=== PATIENT | female | born 1955 | race Caucasian/White ===

== ENCOUNTER 2023-05-06 08:56 | Emergency (ER) | payer MEDICARE, SELFPAY ==
[2023-05-06 08:59] VITALS: BP 171/106
--- NOTE | 2023-05-06 09:47 | ED.GENMED ---
History of Present Illness
<Opal Parnell PA-C - Last Filed: 05/06/23 11:15>
General
Chief Complaint: Fall
Source: patient
Exam Limitations: none
Time Seen by Provider: 05/06/23 09:32
Nursing documentation reviewed up to this point in time: agreed with
Travel History
Have you had any contact with someone who has COVID-19?: No
Do you have any symptoms of coronavirus? Fever > 100 degrees, chills, cough, shortness of breath, sore throat, loss of taste or smell, muscle aches, or headache?: No
History of Present Illness
History of Present Illness:
Patient is a 67-year-old female presenting for evaluation of right shoulder pain after falling in shower. Patient states that she slipped in the shower this morning landing on her right arm with some impact to her right cheek. Patient denies any
LOC. She denies any retrograde amnesia. Patient having some pain in right upper arm. She denies any numbness or tingling in right upper extremity. She denies any headache, visual changes, neck pain, or back pain.
Patient is not on any blood thinners.
Past History
<Opal Parnell PA-C - Last Filed: 05/06/23 11:15>
Past History
ED Past Medical History: GERD
ED Past Surgical History: None
Social History
Tobacco: Non-smoker
Alcohol: None
Drug: None
Personal:
Living: with family
Employment: Employed
Phy Exam
<Opal Parnell PA-C - Last Filed: 05/06/23 11:15>
Physical Exam
Physical Exam:
General: Well appearing and non-toxic
Vitals: Hypertensive, otherwise vital signs stable; afebrile
HEENT: Normocephalic; small bruise to right lateral cheek, pupils equal round reactive to light bilaterally, extraocular muscle intact, no tenderness surrounding orbits; no tenderness at TMJ or mandible, protecting airway
Neck: appears supple, no cervical spine or midline spinal tenderness
CV: Regular rate and rhythm, heart sounds normal, no evidence of cyanosis
Resp: No evidence of respiratory distress, lungs clear bilaterally
Abd: Non-distended
Extremities: Mild tenderness to palpation of right upper arm without obvious deformity; right upper arm neurovascularly intact, right radial pulse palpable; full range of motion of right wrist and right elbow, limited abduction of right shoulder due
to pain
Neuro: alert and oriented x [address]; speech normal; strength 5 out of 5 in lower extremities and left upper extremity, some weakness noted in right upper extremity due to pain; sensation fully intact
Psych: Normal affect
Skin: Intact, no rashes
Course
<Opal Parnell PA-C - Last Filed: 05/06/23 11:15>
Orders/Labs/Results
Orders:
Orders
05/06/23 09:31
Shoulder, Right, Trauma [CR Shoulder, Trauma - Right] Urgent
Comment:
Reason For Exam: pain, trauma
05/06/23 09:47
Acetaminophen [Tylenol] 650 mg PO NOW STA
05/06/23 09:58
CT Head W/o Iv Contrast Urgent
Comment:
Reason For Exam: fall, head strike
05/06/23 10:18
Sling Right-Treatment ONCE
Vital Signs
Initial and Last Documented VS:
Initial Vital Signs
Temp Pulse Resp BP Pulse Ox
36.7 C 58 18 171/106 100
05/06/23 08:59 05/06/23 08:59 05/06/23 08:59 05/06/23 08:59 05/06/23 08:59
Last Documented Vital Signs
Temp Pulse Resp BP Pulse Ox
36.7 C 58 18 171/106 100
05/06/23 08:59 05/06/23 08:59 05/06/23 08:59 05/06/23 08:59 05/06/23 08:59
<Burke Lux MD - Last Filed: 05/06/23 14:46>
Orders/Labs/Results
Orders:
Orders
05/06/23 09:31
Shoulder, Right, Trauma [CR Shoulder, Trauma - Right] Urgent
Comment:
Reason For Exam: pain, trauma
05/06/23 09:47
Acetaminophen [Tylenol] 650 mg PO NOW STA
05/06/23 09:58
CT Head W/o Iv Contrast Urgent
Comment:
Reason For Exam: fall, head strike
05/06/23 10:18
Sling Right-Treatment ONCE
Vital Signs
Initial and Last Documented VS:
Initial Vital Signs
Temp Pulse Resp BP Pulse Ox
36.7 C 58 18 171/106 100
05/06/23 08:59 05/06/23 08:59 05/06/23 08:59 05/06/23 08:59 05/06/23 08:59
Last Documented Vital Signs
Temp Pulse Resp BP Pulse Ox
36.7 C 58 18 171/106 100
05/06/23 08:59 05/06/23 08:59 05/06/23 08:59 05/06/23 08:59 05/06/23 08:59
<Opal Parnell PA-C - Last Filed: 05/06/23 11:15>
MDM/Problems Addressed
Differential Diagnosis Includes:
Contusion, fracture, dislocation, ligamentous injury
MDM/Problems Addressed:
Patient is 67-year-old female presenting from home for evaluation of right arm injury after sustaining a fall while in the shower earlier today. She slipped and fell landing on her right arm with some impact to her right cheek. She denies any
headache, back pain, visual changes. She is hypertensive, otherwise vital signs stable. She has some mild bruise on right lateral cheek but no visible orbital trauma. No focal neurologic deficits on exam. She has mild tenderness palpation of
right upper arm with limited abduction of due to pain. Right upper extremity neurovascular intact. Given trauma will check x-ray of right shoulder and head CT. Tylenol for pain. Will reassess
Xray shows a subtle nondisplaced fracture of right greater tuberosity. Will place in shoulder sling and have patient f/u with orthopedics
Head CT negative for any acute intracranial abnormality.
Patient stable for discharge with Ortho follow-up, Tylenol for pain. Return precautions discussed. She is comfortable this plan. All questions answered.
Chronic conditions affecting care:
N/A
Acute Exacerbation and/or Progression of Chronic Illness:
N/A
<Opal Parnell PA-C - Last Filed: 05/06/23 11:15>
*Radiology
Radiology exam reviewed: preliminary read by ED provider and radiology read reviewed
*Pulse Oximetry
Patient hypoxic: no
*Sewing Demonstrator Interpretation
Rate: Sewing Demonstrator- N/A
*Critical Care Note
Total Time (30-74mins, 75-104mins- exclusive of procedures): Not Applicable
ED Attending Note
<Opal Pranell PA-C - Last Filed: 05/06/23 11:15>
-
Portions of this chart may have been created with voice recognition software.� Occasional wrong word or��sound alike� substitutions may have occurred due to the inherent limitations of voice recognition software.
<Burke Lux MD - Last Filed: 05/06/23 14:46>
ED Attending Note
Patient seen and examined by attending physician: Yes
ED Attending Note:
HPI: 67-year-old female with history of GERD presents for evaluation after a fall with a shoulder injury. She says that she slipped in the shower and fell and hit her right shoulder. She did strike her right cheek on the ground. No loss of
consciousness. Complains of shoulder pain but denies any other complaints. Denies pain in the head or neck. Denies pain in the back. No chest pain, abdominal pain. No pain in the rest of her extremities. Has been ambulatory since the fall.
Not on blood thinners.
ROS: Positive for shoulder pain; negative for headache, neck pain, back pain, chest pain, abdominal pain, numbness or weakness in extremities
Physical exam:
General: Well appearing and non-toxic
HEENT: Head is normocephalic, atraumatic, protecting airway
Neck: No tenderness in the thoracic spine
CV: No evidence of cyanosis
Resp: No accessory muscle use
Abd: Non-distended
Back: No tenderness in the thoracic or lumbar spine
Extremities: On exam of the right shoulder patient has tenderness along the humeral head but no swelling or deformity of the right shoulder; she has no tenderness of the right elbow or wrist, good strong right radial pulse, motor and sensory
function intact radial, median, ulnar nerve distribution right upper extremity; rest of extremities atraumatic
Neuro: Alert
Psych: Normal affect
Skin: Intact
Differential diagnosis: Shoulder contusion, shoulder dislocation, shoulder fracture
Medical decision m[age]-year-old female presents after mechanical slip and fall in the shower with right shoulder injury also had some minor trauma to the head (struck her right cheek on the ground). Given her age sent for CT head which was
negative. Sent for an x-ray of the shoulder which showed a minor humeral head fracture. Placed in a sling. Will refer to orthopedics. Spoke to her about return precautions all questions answered.
Chronic conditions affecting care: N/A
Acute exacerbation or progression of chronic illness: Acutely hypertensive likely related to pain�no indication for emergent antihypertensive therapy as she has no signs or symptoms of hypertensive emergency
History source: Patient, spouse
Data reviewed: N/A
Medications/testing considered: N/A
Social determinants of health: N/A
Discussion with other providers: N/A
Discharge Plan
Departure
Patient Disposition: Home (Routine Discharge)
Date of Disposition: 05/06/23
Time of Disposition: 11:10
Patient with high blood pressure during this ER visit?: Yes
Condition: Good
Covid-19: Not Applicable
Discharge Problem:
Fracture of greater tuberosity of right humerus
Instructions: How to Use a Shoulder Sling ED, Upper Arm Fracture ED, BLOOD PRESSURE
Prescriptions:
No Action
ascorbic acid (vitamin C) [Vitamin C] 1,000 MG tablet
1,000 mg PO DAILY
omeprazole [Prilosec] 10 MG capsule,delayed release(DR/EC)
20 mg PO DAILY
calcium carbonate 500 MG tablet
500 mg PO DAILY
docosahexaenoic acid-epa 1 CAP capsule
1 cap PO DAILY
cholecalciferol (vitamin D3) 1,000 UNITS tablet
1,000 units PO DAILY
Lactobacillus acidophilus [Probiotic] 1 EACH capsule
1 ea PO DAILY
hydrochlorothiazide 25 MG tablet
25 mg PO DAILY Qty: 30 0RF
Referrals:
Carmelo Crocker MD [Family Provider] -
Alexi Mariscal MD [Active] - Next open appointment
Activity Restrictions/Additional Instructions:
- Return to the emergency department with any severe pain, numbness/tingling right arm, severe headache, persistent nausea, intractable vomiting, visual changes, confusion, worsening current symptoms, or any other concerns
-As discussed�you should follow-up with orthopedics within the next few days for further evaluation/management of fracture of right upper arm.
-You should keep arm in sling until cleared by orthopedics. You can take Tylenol as needed for discomfort
Interventions
Interventions:
*Risk Screen - Suicide Last Done: 05/06/23 11:25
*General Assessment Last Done: 05/06/23 11:25
*Neglect/Abuse Screening Last Done: 05/06/23 11:25
ED- Fall Risk Assessment Last Done: 05/06/23 11:25
*ED COVID-19 Vaccine History Last Done: 05/06/23 09:04
*Nursing Disposition Last Done: 05/06/23 11:25
ED-Musculoskeletal Assessment Last Done: 05/06/23 09:31
ED- Neurological Assessment Last Done: 05/06/23 10:54
ED-Skin Assessment Last Done: 05/06/23 10:54
Discharge Date and Time
Discharge Date/Time: 05/06/23 11:25
[2023-05-06] MEDS: TYLENOL 650 MG PO (10:02)
== END 2023-05-06 11:25 | disposition home or self-care (01) ==
LOC: EMR 08:56
PROVIDERS: EMERGENCY PHYSICIAN Emergency Medicine; FAMILY PHYSICIAN Family Medicine
DX: S42.251A Displaced fracture of greater tuberosity of right humerus, initial encounter for closed fracture (principal); S00.83XA Contusion of other part of head, initial encounter; W18.2XXA Fall in (into) shower or empty bathtub, initial encounter; Y93.E1 Activity, personal bathing and showering; R03.0 Elevated blood-pressure reading, without diagnosis of hypertension
CPT/HCPCS: 99284; 70450; 73030

== ENCOUNTER → 2023-08-11 14:23 | Outpatient (REF) | payer MEDICARE, SELFPAY | LOC: WDC 14:23 | PROVIDERS: ATTENDING PHYSICIAN Family Medicine | DX: Z78.0 Asymptomatic menopausal state (principal); Z12.31 Encounter for screening mammogram for malignant neoplasm of breast | CPT/HCPCS: 77063; 77067; 77080 ==

== ENCOUNTER → 2023-10-05 13:31 | Outpatient (REF) | payer MEDICARE, SELFPAY | LOC: RAD 13:31 | PROVIDERS: ATTENDING PHYSICIAN Family Medicine | DX: R09.89 Other specified symptoms and signs involving the circulatory and respiratory systems (principal) | CPT/HCPCS: 93922 ==

== ENCOUNTER → 2023-11-29 08:19 | Outpatient (REF) | payer MEDICARE, SELFPAY | LOC: RAD 08:19 | PROVIDERS: ATTENDING PHYSICIAN Family Medicine | DX: R09.89 Other specified symptoms and signs involving the circulatory and respiratory systems (principal) | CPT/HCPCS: 93925 ==

== ENCOUNTER → 2023-12-06 06:24 | Day surgery (SDC) | payer MEDICARE, SELFPAY | LOC: GI 06:24 | PROVIDERS: ATTENDING PHYSICIAN Internal Medicine Gastroenterology | DX: Z12.11 Encounter for screening for malignant neoplasm of colon (principal); K64.8 Other hemorrhoids; Z80.0 Family history of malignant neoplasm of digestive organs | CPT/HCPCS: G0105 ==